=== PATIENT | male | born 1960 | race Two or more races ===

== ENCOUNTER 2018-03-02 09:54 | Emergency (ER) | payer MEDICAID ==
[~2018-03-02] VITALS: Ht 172.7 cm; Wt 81.6 kg
[2018-03-02 09:56] VITALS: Ht 172.7 cm; Wt 81.6 kg
[2018-03-02 11:18] VITALS: BP 130/78
== END 2018-03-02 11:18 | disposition short-term general hospital (02) ==
LOC: ED 09:54
DX: I10 Essential (primary) hypertension (principal); R51 Headache; R47.81 Slurred speech; R53.1 Weakness; R06.02 Shortness of breath; R11.2 Nausea with vomiting, unspecified; Z98.890 Other specified postprocedural states; Z86.73 Personal history of transient ischemic attack (TIA), and cerebral infarction without residual deficits
CPT/HCPCS: 82962